=== PATIENT | male | born 1950 | race Caucasian/White ===

== ENCOUNTER → 2018-10-05 08:26 | Outpatient (CLI) | payer MEDICARE, SELFPAY ==
--- NOTE | 2018-10-05 08:46 | XR_ITS ---
XR knee RT 3V HISTORY: Progressive worsening pain in the right knee ITS.REASON: OSTEOARTHRITIS ORDERING PHYSICIAN: Felisa Samuels MD PATIENT AGE: 68 years COMPARISON: None FINDINGS: There are moderate osteoarthritic changes of the medial compartment and moderate to severe osteoarthritis of the patellofemoral joint with decrease in the joint space and osteophyte formation. No fracture or dislocation is evident. No lytic or blastic change. There is a calcification along the superior aspect of the lateral tibial spine which could be due to an osteophyte versus a loose body. Minimal calcification noted at the medial meniscal area. IMPRESSION: Moderate to severe osteoarthritis as described above
== END ==
PROVIDERS: PCP Family Medicine; Visit Provider Family Medicine
DX: M17.11 Unilateral primary osteoarthritis, right knee (principal)
CPT/HCPCS: 73562

== ENCOUNTER → 2019-05-15 10:36 | Outpatient (CLI) | payer MEDICARE, SELFPAY ==
--- NOTE | 2019-05-15 10:42 | XR_ITS ---
XR KUB HISTORY: ITS.REASON: LT LOWER QUAD ABD PAIN ORDERING PHYSICIAN: Felisa Samuels MD PATIENT AGE: 68 years COMPARISON: None FINDINGS: The bowel gas pattern is unremarkable. No obvious obstruction.. There are multiple left renal calculi with stones in both upper and lower pole of the left kidney. Large stone is in the mid polar region at 5 mm. There are faint densities noted in the lower pelvic region and could be due to stones within the urinary bladder. Degenerative changes are present in the lumbar spine. The bowel gas pattern is nonspecific/nonacute. IMPRESSION: 1. Left nephrolithiasis. 2. Possible bladder stones.
== END ==
PROVIDERS: PCP Family Medicine; Visit Provider Family Medicine
DX: R10.32 Left lower quadrant pain (principal)
CPT/HCPCS: 74018

== ENCOUNTER → 2021-10-10 08:06 | Outpatient (CLI) | payer MEDICARE, SELFPAY ==
--- NOTE | 2021-10-10 08:11 | US_ITS ---
PROCEDURE: US ABD. AORTA SCREENING CLINICAL INDICATION: HTN COMPARISON: US RUQ US RUQ-(ABD LTD)1ORGAN/QUAD/FU from 11/05/2016 FINDINGS: No evidence of abdominal aortic aneurysm. Proximal common iliacs have an unremarkable appearance. IMPRESSION: Negative for abdominal aortic aneurysm Dictated by: Tan Escalante MD 10/10/2021 16:47 Tan Escalante MD in [place] 10/10/2021 16:47
== END ==
PROVIDERS: PCP Family Medicine; Visit Provider Family Medicine
DX: I10 Essential (primary) hypertension (principal); Z13.6 Encounter for screening for cardiovascular disorders
CPT/HCPCS: 76705

== ENCOUNTER 2024-04-27 16:41 | Outpatient (CLI) | payer MEDICARE, SELFPAY ==
--- NOTE | 2024-04-27 16:55 | ECG_ITS ---
APPROVED REPORT Exam: Resting ECG HR:60 bpm ECG Measurements Heart Rate 60 AXES OK 199 P 39 QRSd 87 QRS -22 QT 368 T -19 QTc 368 Conclusion SINUS RHYTHM WITH SINUS ARRHYTHMIA BORDERLINE LEFT AXIS DEVIATION [QRS AXIS < -20] BORDERLINE ECG UNCONFIRMED REPORT Electronically signed by : Robert Escamilla MD 04/28/2024 08:46:03
== END 2024-04-27 23:59 | disposition home or self-care (01) ==
LOC: RT 16:44
PROVIDERS: PCP Family Medicine; Visit Provider Family Medicine
DX: I49.9 Cardiac arrhythmia, unspecified (principal)
CPT/HCPCS: 93005

== ENCOUNTER 2024-05-09 08:27 | Outpatient (CLI) | payer MEDICARE, SELFPAY ==
--- NOTE | 2024-05-09 | CA_ITS ---
APPROVED REPORT EXAM: Comprehensive 2D, Doppler, and color-flow Echocardiogram Body Line Finisher: Briana Bassett CRT Ht: 5 ft 8 in Wt: 197lbs BSA: 2.03 BP: 117/77 mmHg Indications: Arrhythmia, Diabetes, Palpitations, Hyperlipidemia 2D Dimensions LA Volume 21.10 mL LA Volume Index 10.10 mL/m2 (M/F) 16-34 M-Mode Dimensions RVDd 2.50 cm (0.9-2.6) LA Diam 3.86 cm (1.9-4.0) LVDd 4.78 cm (3.5-5.7) LVDs 3.28 cm (3.5-5.7) IVSd 1.44 cm (0.6-1.1) PWd 0.84 cm (0.6-1.1) EF (Teich) 59.20% FS 31.40% EDV (Teich) 106.50 mL TAPSE 2.33 (<1.7) ESV (Teich) 43.50 mL LV Diastology E Decel Time 420 (160-240 msec) E/A Ratio 0.68 MED A' 9.40 cm/s LAT A' 12.40 cm/s Aortic Valve AO Peak GR. 4.20 mmHg Mitral Valve MV A Velocity 70.0 (40-130 cm/s) E/A Ratio 0.68 Pulmonary Valve PV Peak Velocity 144.0 (50-150 cm/s) Tricuspid Valve TR P. Velocity 230.00 cm/s RAP Estimate 10.00 mmHg RVSP 31.20 mmHg Left Ventricle The left ventricle is normal size. The left ventricular systolic function is normal. The left ventricular ejection fraction is within the normal range. Proximal septal thickening is noted. There is normal LV segmental wall motion. Transmitral Doppler flow pattern suggests impaired LV relaxation. LVEF is 55%. Right Ventricle The right ventricle is normal size. The right ventricular systolic function is normal. Atria The left atrium size is normal. The right atrium size is normal. The interatrial septum is not well-visualized. Aortic Valve The aortic valve is mildly thickened. There is no aortic valvular stenosis. No aortic regurgitation is present. Mitral Valve The mitral valve is normal in structure. No evidence of mitral valve stenosis. There is no mitral valve regurgitation noted. Tricuspid Valve The tricuspid valve leaflets are thin and pliable. Mild tricuspid regurgitation. RVSP is 20 mmHg plus RA pressure. Pulmonic Valve The pulmonary valve is normal in structure. Mild pulmonic regurgitation. Great Vessels The aortic root is normal in size. The ascending aorta is not well-visualized. The IVC is not well-visualized. Pericardium There is no pericardial effusion. Other Information Study Quality: Fair Conclusion Normal biventricular systolic function. Mild TR, mild PI. Electronically signed by : Yisel Crook MD 05/13/2024 22:05:42
--- NOTE | 2024-05-09 | CA_ITS ---
FINAL REPORT TECHNIQUE: Color Doppler, duplex Doppler and goodman scale sonography of the bilateral neck arterial vasculature was performed. Velocities were measured in the carotid arteries. Stenosis evaluation based on the validated velocity criteria. CLINICAL HISTORY: HTN, DM, HLD, palp, arrhythmia FINDINGS: The peak systolic velocity of the right common carotid artery is 86 cm/s. The peak systolic velocity of the right internal carotid artery is 57 cm/s and end diastolic velocity 23 cm/s. The ICA/CCA ratio is 0.91. A small amount of plaque is present. The right external carotid artery is patent. The right vertebral artery is patent with antegrade flow. The peak systolic velocity of the left common carotid artery is 87 cm/s. The peak systolic velocity of the left internal carotid artery is 87 cm/s and end diastolic velocity 26 cm/s. The ICA/CCA ratio is 1.4. A small amount of plaque is present. The left external carotid artery is patent.The left vertebral artery is patent with antegrade flow. IMPRESSION: Less than 50% bilateral carotid stenoses. Bilateral patent vertebral arteries with antegrade flow. If indicated, CTA or MRA could further evaluate. Reviewed, Interpreted and Dictated by Harrison Douglas III, MD Transcribed by Karen Guillen Authenticated and [facility]
== END 2024-05-09 23:59 | disposition home or self-care (01) ==
LOC: RT 08:28
PROVIDERS: PCP Family Medicine; Visit Provider Family Medicine
DX: I49.9 Cardiac arrhythmia, unspecified (principal); R00.2 Palpitations; I10 Essential (primary) hypertension; E78.5 Hyperlipidemia, unspecified; E11.9 Type 2 diabetes mellitus without complications; I65.23 Occlusion and stenosis of bilateral carotid arteries
CPT/HCPCS: 93306; 93880

== ENCOUNTER → 2025-06-20 08:05 | Outpatient (CLI) | payer MEDICARE, SELFPAY | LOC: SL 08:07 | PROVIDERS: PCP Family Medicine; Visit Provider Family Medicine | DX: G47.33 Obstructive sleep apnea (adult) (pediatric) (principal); I10 Essential (primary) hypertension; I48.91 Unspecified atrial fibrillation; E11.9 Type 2 diabetes mellitus without complications | CPT/HCPCS: G0399 ==